=== PATIENT | female | born 1950 | race Caucasian/White ===

== ENCOUNTER 2018-12-27 15:22 | Inpatient (IN) | payer OTHER ==
[~2018-12-27] VITALS: Ht 152.4 cm; Wt 47.6 kg
--- NOTE | 2018-12-27 15:45 | NUR ---
PTE REFIERE RETENCION DE ORINA FUE REFERIDA POR DR MCKAYLA CASON HEATH S/V YSE UBICA EN AREA DE OBSERVACION
--- NOTE | 2018-12-27 17:27 | NUR ---
SE ORIENTA PTE SOBRE TX MEDICO EL CUAL REFIERE ENTENDER.SE LE EXTRAEN MUESTRAS BAJO MEDIDAS ASEPTICAS,SE CANALIZA Y SE COLOCA FLUIDO DE MANTENIMIENTO,SE LE INSERTA LUZ BAJO MEDIDAS ASEPTICAS.
--- NOTE | 2018-12-27 18:01 | NUR ---
NOTA: NO SE INSERTO SONDA URINARIA DEBIDO A QUE LA PACIENTE LOGRO ORINAR Y SE NOTIFICO A DR. CRUZ EL CUAL REFIRIO NO INSERTAR. PACIENTE ROSENDO MUESTRA DE U/A Y SE ENVIO A LABORATORIO.
--- NOTE | 2018-12-28 07:11 | NUR ---
SE RECIBE DE TURNO ANTERIOR EN SHAYLA #06, FEMINA DE 68 ANOS,ALERTA,ORIENTADA EN MIROSLAVA ESFERAS,DESCANSANDO EN CAMA NIVEL MAS BAJO,BARANDAS ELEVADAS,FRENOS,ALMONTE DE IDENTIFICACION COLOCADOS POR SEGURIDAD. PACIENTE EN COMPANIA DE FAMILIAR. SE OBSERVA CON BUEN PATRON RESPIRATORIO,PIEL TIBIA AL TACTO.AREA DE VENOPUNCION LIMPIA,SECA,HAFSA DE S/S EDEMA Y/O ERITEMA;RECIBIENDO 0.45%NSS 1,000ML @60ML/HR, KCL 40MEQ/100ML @ 8ML MEDIANTE IV PUMP.
--- NOTE | 2018-12-28 22:26 | NUR ---
PACIENTE ALERTA Y ORIENTADA X3. EN CAMA EN POSICION SEMI-SENTADA CON BARANDAS ELEVADAS Y INTERCOM ACCESIBLE. SE ORIENTA SOBRE PROCEDIMIENTO A RECIBIR Y TX, REFIERE ENTENDER. SE REALIZA MUESTRA DE LABORATORIO BAJO MEDIDAS ASEPTICAS. 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
--- NOTE | 2018-12-29 00:53 | NUR ---
SE RECIBE FEMINA ALERTA Y ORIENTADA POR MIROSLAVA ESFERAS, EN CAMA CON BARANDAS SEGURAS Y ELEVADAS. EN COMPANIA DE FAMILIAR. TIMBRE DE EMERGENCIAS ACCESIBLE. AREA DE VENOPUNCION HAFSA DE EDEMA O ENROJEICMIENTO. RECIBIENDO 40MEQ/1000 ML @ 125 MLS/HR. PRESENTA BUEN PATRON RESPIRATORIO. SE MANTIENE EN OBSERVACION POR CAMBIOS.
--- NOTE | 2018-12-29 07:55 | NUR ---
SE RECIBE PTE ALERTA Y CONCIENTE POR 3 EN COMPANIA DE SANCHES FAMILIAR EN CAMA CON BARANDA ELEVADA Y TIMBRE ACCESIBLE, SE OBSERVA VENOPUNCION PATENTE Y HAFSA DE EDEMA PTE SE MANTIENE EN OBSERVACION EN ESPERA DEL DR DOLL.
[2019-01-02] MEDS ORDERED: LEVOTHYROXINE200 MCG PO (08:18)
[2019-01-02] MEDS ORDERED: REVLIMID25 MG PO (08:19)
[2019-01-02] MEDS ORDERED: MICRO-K 1010 MEQ PO (17:02)
[2019-01-02] MEDS ORDERED: ACIDOPHILUS-PE1 EAC2 PO (17:02)
[2019-01-02] MEDS ORDERED: ACID CONTROLLER20 MG PO (17:03)
== END 2019-01-03 14:20 | disposition home or self-care (01) | DRG 641 ==
LOC: ER 15:22 → MEDJ 12-29 08:29 → MEDI 12-29 08:29 → SEC-K 12-29 09:56 → MEDJ 12-29 13:07
PROVIDERS: ADMIT Student in an Organized Health Care Education/Training Program
DX: E87.6 Hypokalemia (principal); E86.0 Dehydration; E87.0 Hyperosmolality and hypernatremia; E03.8 Other specified hypothyroidism